=== PATIENT | male | born 1990 | race Caucasian/White ===

== ENCOUNTER 2017-11-30 20:28 | Emergency (ER) | payer OTHER ==
[~2017-11-30] VITALS: Ht 180.3 cm; Wt 95.3 kg
--- NOTE | 2017-11-30 21:06 | ED CARDIAC/CP/PALPITATIONS ---
History of Present Illness General Chief Complaint: Chest Pain Stated Complaint: PT IS HAVING CHEST PAIN Source: patient Exam Limitations: no limitations Vital Signs & Intake/Output Vital Signs & Intake/Output Vital Signs Date Time Temp Pulse Resp B/P B/P Pulse O2 O2 Flow FiO2 Mean Ox Delivery Rate 12/01 0001 98.8 81 18 128/73 99 Room Air 11/30 2046 99.2 87 18 144/84 100 Room Air ED Intake and Output 12/01 0000 11/30 1200 Intake Total 0 Output Total 60 Balance -60 Intake, Oral 0 Output, Urine 60 Patient 210 lb Weight Allergies Coded Allergies: oats (RASH 11/30/17) Reconcile Medications Indomethacin 50 MG CAPSULE 1 CAP PO TID pericarditis with food Triage Note: PT REPORTS AT 1500 HE BEGAN TO HAVE "DISCOMFORT IN MY CHEST". PT REPORTS PAIN BEGAN AFTER "COUGHING REALLY DEEPLY". PT DESCRIBES IT "SORENESS". PT REPORTS IT IS INTERMITTENT. PT REPORTS PAIN GOES AWAY WITH MOVEMENT BUT WHEN HE IS SITTING STILL. PT REPORTS PAIN IS WORSE WITH PALPATION. Triage Nurses Notes Reviewed? yes Onset: Gradual Duration: hour(s): Timing: multiple episodes today Quality/Severity: moderate, aching Location: left chest Radiation: no radiation Activities at Onset: rest HPI: 89yo male presents to ED complaining of chest pain beginning at about 1500 today. Patient describes chest pain as left-sided without radiation, intermittent, worse at rest and relieved with movement, achy, 4/10. Patient has no history of previous chest pain in the past. Patient had recent travel to [place] in the past few weeks. Patient denies pleuritic pain, dyspnea, presyncope , abdominal pain, fevers, chills, vomiting. (Jenny Angelo) Past History Travel History Traveled to [place] past 21 day No Medical History Any Pertinent Medical History? none Neurological: NONE EENT: NONE Cardiovascular: NONE Respiratory: NONE Gastrointestinal: NONE Hepatic: NONE Renal: NONE Musculoskeletal: NONE Psychiatric: NONE Endocrine: NONE Blood Disorders: NONE Cancer(s): NONE CARDIOVASCULAR PHYSICIAN ASSISTANT/Reproductive: NONE Surgical History Surgical History: none Psychosocial History What is your primary language Lithuanian Tobacco Use: Never used Family History Hx Contributory? No (Jenny Angelo) Review of Systems Review of Systems Constitutional: Reports: no symptoms. EENTM: Reports: no symptoms. Respiratory: Reports: no symptoms. Cardiovascular: Reports: see HPI. GI: Reports: no symptoms. Genitourinary: Reports: no symptoms. Musculoskeletal: Reports: no symptoms. Skin: Reports: no symptoms. Neurological/Psychological: Reports: no symptoms. Hematologic/Endocrine: Reports: no symptoms. Immunologic/Allergic: Reports: no symptoms. All Other Systems: Reviewed and Negative (Una BEEBE,Jneny Painting) Physical Exam Physical Exam General Appearance: well developed/nourished, no apparent distress, alert, awake Head: atraumatic, normal appearance Eyes: Bilateral: normal appearance. Ears, Nose, Throat: hearing grossly normal Neck: normal inspection, supple, full range of motion Respiratory: normal breath sounds, no respiratory distress, lungs clear, left sided chest tenderness Cardiovascular: regular rate/rhythm, normal peripheral pulses Peripheral Pulses: 2+ radial (R), 2+ radial (L) Gastrointestinal: normal bowel sounds, soft, non-tender, no organomegaly Back: normal inspection, normal range of motion Extremities: normal inspection, normal range of motion Neurologic/Psych: awake, alert, oriented x 3 Skin: intact, normal color, warm/dry Core Measures ACS in differential dx? Yes CVA/TIA Diagnosis No Sepsis Present: No Sepsis Focused Exam Completed? No (Una BEEBE,Jenny Painting) Progress Differential Diagnosis: AMI, atrial fibrillation, CHF/pulm edema, costochondritis, musculoskeletal pain, myocarditis, pericarditis, pneumonia, pneumothorax, PSVT, pulmonary embolism, unstable angina Plan of Care: Orders Procedure Date/time Status EKG 11/305 Active TROPONIN LEVEL 11/30 2300 Complete Add-on Test (ER Only) 12/01 2115 Active URINE DRUG SCREEN FOR ER ONLY 12/01 2103 Complete TROPONIN LEVEL 12/01 2103 Complete D-DIMER 12/01 2103 Complete COMPREHENSIVE METABOLIC PANEL 12/01 2103 Complete CBC WITHOUT DIFFERENTIAL 12/01 2103 Complete EKG 11/30 2029 Active Current Medications Sig/Jennifer Start time Last Medication Dose Stop Time Status Admin Indomethacin Sodium 50 MG ONCE ONE 12/01 14 CAN (Indocin 25 MG Cap) 12/01 0016 Laboratory Tests 11/30/17 2314: Troponin I < 0.01 11/30/172117: Anion Gap 14, Estimated GFR > 60, BUN/Creatinine Ratio 15.0, Glucose 83, Calcium 9.8, Total Bilirubin 2.0 H, AST 23, ALT 50, Alkaline Phosphatase 77, Troponin I < 0.01, Total Protein 7.7, Albumin 5.1 H, Globulin 2.6, Albumin/Globulin Ratio 2.0, D-Dimer High Sensitivty < 200, CBC w Diff NO MAN DIFF REQ, RBC 6.61 H, MCV 64.0 L, MCH 19.3 L, MCHC 30.2 L, RDW 16.9 H, MPV 9.7, Gran % 71.5, Lymphocytes % 22.2, Monocytes % 4.9, Eosinophils % 0.7, Basophils % 0.7, Absolute Granulocytes 6.2, Absolute Lymphocytes 1.9, Absolute Monocytes 0.4, Absolute Eosinophils 0.1, Absolute Basophils 0.1 11/30/175: Urine Opiates Screen < 100, Methadone Screen < 40, Barbiturate Screen < 60, Ur Phencyclidine Scrn < 6.00, Amphetamines Screen < 100, U Benzodiazepines Scrn < 85, Urine Cocaine Screen < 50, Urine Cannabis Screen < 5.00 Patient's EKG is in sinus rhythm. Troponin enzyme negative. D-dimer is negative, low suspicion for PE at this time. The patient was seen and evaluated by Dr. Carias. Will obtain repeat EKG and troponin to further rule out acute cardiac pathology. Repeat EKG shows diffuse ST elevations which is consistent with pericarditis. T- waves are also slightly peaked and NC depresions in lateral leads. Spoke with Dr. Matamoros regarding this patient - he believes this patient does have pericarditis. HE recommends Indomethacin and follow up in the office next week. SEcond troponin is negative. Chest x-ray without signs of cardiomegaly. Patient reports mild pain, vital signs are stable. Patient stable for discharge home. The patient was given strict return precautions including increasing chest pain, shortness of breath, vomiting, fevers. Patient understands his diagnosis and will return with worsening symptoms. Patient had a business trip scheduled for Sunday however will cancel his trip. Patient to follow up with cardiology on Sunday. Patient agrees with the plan of care. Diagnostic Imaging: Viewed by Me: Radiology Read. Discussed w/RAD: Radiology Read. Radiology Impression: PATIENT: KIMBERLEY SALDAÑA PRESENT AGE: 27 PATIENT ACCOUNT NO: [id number] : 89 LOCATION: [facility] ORDERING PHYSICIAN: Jenny BEEBE SERVICE DATE: 11/30/17 EXAM TYPE: RAD - XRY-CHEST XRAY, TWO VIEWS EXAMINATION: XR CHEST CLINICAL INFORMATION : Chest pain. COMPARISON: None TECHNIQUE: 2 views of the chest were obtained. FINDINGS: No significant abnormality is noted involving the heart, lungs, mediastinum, bony thorax or soft tissues. IMPRESSION: Unremarkable examination. DICTATED BY: Alberto Dillon MD DATE/TIME DICTATED:11/30/172150 SUPERVISOR DRIED YEAST :ALEXIS DATE/TIME TRANSCRIBED:11/30/172150 CONFIDENTIAL, DO NOT COPY WITHOUT APPROPRIATE AUTHORIZATION. <Electronically signed in Other Vendor System> SIGNED BY: Alberto Dillon MD 11/30/172154 Initial ED EKG: SINUS RHYTHM @83BPM, NONSPECIFIC ST CHANGES Repeat EKG: changed (diffuse ST elevations) (Una BEEBE,Jenny Painting) Departure Departure Disposition: HOME OR SELF CARE Condition: Stable Clinical Impression Primary Impression: Pericarditis Qualifiers: Pericarditis type: unspecified type Chronicity: acute Qualified Code: I30.9 - Acute pericarditis, unspecified Referrals: Saturnino COX PHD,Simone Edwards Additional Instructions: begin indomethacin and take as prescribed. Follow-up with the meter supervisor, call on Sunday to make an appointment for this week. If you develop any worsening symptoms or other concerns please return to the emergency department. Watch for signs of increasing chest pain, shortness of breath, fevers, vomiting. Please go over all results of today's visit with your primary care doctor. Contact your primary care doctor to let them know you were here in the emergency room. There may be nonspecific findings which may not be related to your visit today here in the emergency room but may require further evaluation and chronic monitoring by your primary care doctor. If you had a laceration today the chance of foreign body always remains. You should follow-up with your primary care doctor for recheck in 3-5 days for a wound check. If you had an x-ray done there is a chance that a fracture could have been missed on initial read and you should follow-up with your primary care doctor for repeat x-rays if symptoms persist. If your blood pressure was elevated here in the emergency room please have rechecked by the [facility] primary care doctor within the next 48. If you were prescribed a narcotic here in the emergency room or any type of controlled substances you're not allowed to drive while taking this medication or operate any type of heavy machinery. Narcotics can make you feel lightheaded dizziness nausea and can cause constipation. You may need to machine pecan picker a stool softener. Thank you for choosing [facility] emergency room. Please return to the emergency room immediately if you have any other concerns worsening of symptoms. Departure Forms: Customer Survey General Discharge Information Prescriptions: Current Visit Scripts Indomethacin 1 CAP PO TID #30 CAP with food (Una BEEBE,Jenny Painting) PA/HUMAN RESOURCES TRAINER Co-Sign Statement Statement: ED Attending supervision documentation- [X] I saw and evaluated the patient. I have also reviewed all the pertinent lab results and diagnostic results. I agree with the findings and the plan of care as documented in the PA's/HUMAN RESOURCES TRAINER's documentation. [] I have reviewed the ED Record and agree with the PA's/HUMAN RESOURCES TRAINER's documentation. [] Additions or exceptions (if any) to the PAs/HUMAN RESOURCES TRAINER's note and plan are summarized below: [] The patient had 2 negative troponins. No risk factors for coronary artery disease. His repeat EKG did show some evidence of pericarditis. This was reviewed with the on-call meter supervisor Dr. Matamoros who agreed with the plan of care. (Joseluis Carias DO) Critical Care Note Critical Care Note Critical Care Time: 30-74 min (Jenny Angelo)
[2017-11-30 21:33] LABS: ABSOLUTE BASOPHIL COUNT 0.1 /CUMM (0.0-0.2); ABSOLUTE EOSINOPHIL COUNT 0.1 /CUMM (0.0-0.7); ABSOLUTE GRANULOCYTE CT 6.2 /CUMM (1.4-6.5); ABSOLUTE LYMPH COUNT 1.9 /CUMM (1.2-3.4); ABSOLUTE MONOCYTE COUNT 0.4 /CUMM (0.10-0.60); BASOPHIL % 0.7 % (0.0-2.0); EOSINOPHIL % 0.7 % (0-5); GRANULOCYTE % 71.5 % (42.2-75.2); HEMATOCRIT 42.3 % (42-52); MEAN CORPUSCULAR HGB 19.3 PG (27.0-31.0); MEAN CORPUSCULAR HGB CONC 30.2 G/DL (33.0-37.0); MEAN PLATELET VOLUME 9.7 FL (7.4-10.4); PLATELET COUNT 172 /CUMM (130-400); RBC DISTRIBUTION WIDTH 16.9 % (11.5-14.5); RED BLOOD CELL CT 6.61 /CUMM (4.70-6.10); WHITE BLOOD CELL COUNT 8.6 /CUMM (4.8-10.8)
--- NOTE | 2017-11-30 21:55 | RADIOLOGY REPORT ---
EXAMINATION: XR CHEST CLINICAL INFORMATION: Chest pain. COMPARISON: None TECHNIQUE: 2 views of the chest were obtained. FINDINGS: No significant abnormality is noted involving the heart, lungs, mediastinum, bony thorax or soft tissues. IMPRESSION: Unremarkable examination.
[2017-12-01 00:01] VITALS: BP 128/73
[2017-12-01] MEDS ORDERED: INDOMETHACIN50 M1 PO (00:07)
== END 2017-12-01 00:20 ==
LOC: ERH 20:28
PROVIDERS: Physician Assistant
DX: I31.9 Disease of pericardium, unspecified (principal); R07.89 Other chest pain
CPT/HCPCS: 71046; 80307; 93005; 93010